=== PATIENT | male | born 1990 | race Two or more races ===

== ENCOUNTER → 2021-09-11 13:37 | Outpatient (BNVA) | payer OTHER, SELFPAY | PROVIDERS: Visit Provider Internal Medicine | DX: S46.811A Strain of other muscles, fascia and tendons at shoulder and upper arm level, right arm, initial encounter (principal); X50.0XXA Overexertion from strenuous movement or load, initial encounter | CPT/HCPCS: 99202 ==

== ENCOUNTER → 2021-09-13 13:10 | Outpatient (BNVA) | payer OTHER, SELFPAY | PROVIDERS: Visit Provider Internal Medicine | DX: S46.811A Strain of other muscles, fascia and tendons at shoulder and upper arm level, right arm, initial encounter (principal); S39.012A Strain of muscle, fascia and tendon of lower back, initial encounter; X58.XXXA Exposure to other specified factors, initial encounter | CPT/HCPCS: 99213 ==

== ENCOUNTER → 2021-09-18 14:31 | Outpatient (BNVA) | payer OTHER, SELFPAY | PROVIDERS: Visit Provider Internal Medicine | DX: S16.1XXA Strain of muscle, fascia and tendon at neck level, initial encounter (principal); S46.911A Strain of unspecified muscle, fascia and tendon at shoulder and upper arm level, right arm, initial encounter; S39.012A Strain of muscle, fascia and tendon of lower back, initial encounter; X58.XXXA Exposure to other specified factors, initial encounter | CPT/HCPCS: 99213 ==

== ENCOUNTER 2021-10-02 13:57 | Outpatient (RCR) | payer OTHER, SELFPAY ==
--- NOTE | 2021-10-02 15:16 | MHC.PT.EP ---
[facility] [place] [facility] [place] [facility] [place] [facility] [address] Rell Pacheco [address] [phone] F: [phone] F: [phone] F: [phone] F: [phone] Physical Therapy Plan of Care Date of Evaluation: Date of Surgery: Diagnosis: LUMBAR STRAIN Assessment: 31 YO MALE REF TO PT W H/O LUMBAR STRAIN AFTER A LIFTING INJURY AT WORK ON 09/11/21- HE IS CURRENTLY ON LIGHT DUTY W A 10 LB LIFTING RESTRICTION. Pt DENIES RADICULAR SXS- HE HAS LIMITED TRUNK AROM, DECR FLEXIB IN HIPS AND HS, (+) TISSUE TENSION IN DINORAH LB AND PAIN IN LS REGION ( WORSE W BENDING, LIFTING, DRIVING). Pt HAS DECR POSTURAL AWARENESS AND HE WOULD BENEFIT FROM PT TO ADDRESS THE ABOVE FINDINGS , DEV HEP/ SELF SX MGMT STRATEGIES, AND ASSIST Pt IN RTW REG DUTY. Frequency and Duration: The patient will be seen 2 x WK x 4 WKS Short Term Goals: Pt'S LBP DECR TO 2-3/10 IN 2 WKS Pt DEMON PROPER POSTURE AND BODY MECH W 3:3 SIMUL ADL/ WORK TASKS IN 2 WKS Pt DEMON WFL TRUNK AROM AND HIP FLEXIBILITY IN 2 WKS Half-Way Goals: Pt INDEP W HEP And SELF-SX MGMT STRATEGIES IN 4 WKS Pt RETURN TO REG ADLs/ WORK EVIDENT W IMPROVED OSWESTRY BY 8-10 POINTS (AT EVAL 20/50)IN 4 WKS Treatment Plan: Modalities to reduce pain, spasms and effusion. Manual therapy to restore motion and function. Therapeutic exercise to improve strength and flexibility. Neuromuscular re-education for posture and balance. Therapeutic activities to return to functional activities of daily living. Electronically signed by: Keke Castro,PT Please sign and return to therapist. Thank you for your referral.
--- NOTE | 2021-10-22 09:26 | MHC.PT.DC ---
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 Pt IS D/C'D THIS DATE PER HIS REQUEST. Electronically signed by: Keke Castro,PT Please sign and return to therapist. Thank you for your referral.
== END 2021-10-22 09:28 | disposition home or self-care (01) ==
LOC: HO.PT 13:57
PROVIDERS: PCP Internal Medicine; Visit Provider Internal Medicine
DX: S39.012D Strain of muscle, fascia and tendon of lower back, subsequent encounter (principal)
CPT/HCPCS: 97110; 97140; 97161